=== PATIENT | male | born 1960 ===

== ENCOUNTER 2020-06-12 12:51 | Outpatient (NON) | payer OTHER, SELFPAY ==
[2020-06-12 15:41] LABS: Appearance Synovial Fluid Hazy (Clear); Color Synovial Fluid Yellow (Colorless); Lymphocytes Synovial Fluid 81 %; Monocytes Synovial Fluid 2 %; Neutrophils Synovial Fluid 17 % (0-25); Nucleated Cell Synovial Fluid 140 /uL (0-200); RBC Synovial Fluid 269 /uL (0-0); Source Synovial Fluid Synovial fluid
[2020-06-12 15:44] LABS: Crystals Synovial Fluid None Seen (None Seen)
== END 2020-06-12 12:52 | disposition home or self-care (01) ==
PROVIDERS: Visit Provider Orthopaedic Surgery
DX: M25.561 Pain in right knee (principal); M17.11 Unilateral primary osteoarthritis, right knee
CPT/HCPCS: 87075; 88108; 89051; 89060